=== PATIENT | male | born 1955 | race Caucasian/White ===

== ENCOUNTER 2020-03-16 18:21 | Observation (INO) | payer MEDICARE, MEDICAID ==
[~2020-03-16] VITALS: Ht 175.3 cm; Wt 115.3 kg
[2020-03-16 18:29] VITALS: BP 214/108
[2020-03-16] MEDS ORDERED: TRAMADOL 50 MG50 MG PO (18:33)
[2020-03-16] MEDS ORDERED: NEURONTIN100 MG PO (18:33)
[2020-03-16] MEDS ORDERED: GLIPIZIDE 10 MG10 MG PO (18:34)
[2020-03-16] MEDS ORDERED: LOSARTAN POTAS100 MG PO (18:34)
[2020-03-16] MEDS ORDERED: NOVOLOG100 UNIT/M SUBQ (18:34)
[2020-03-16] MEDS ORDERED: CRESTOR20 MG PO (18:34)
[2020-03-16] MEDS ORDERED: LEVEMIR100 UNIT/1 (18:35)
[2020-03-16 18:46] LABS: ABSOLUTE EOSINOPHILS 0.2 thou/uL (0.0-0.7); ABSOLUTE LYMPHOCYTES 2.4 thou/uL (0.8-5.3); ABSOLUTE MONOCYTES 0.6 thou/uL (0.0-1.2); BASOPHILS 0.5 %; EOSINOPHILS 2.2 %; HEMATOCRIT 33.2 % (42.0-52.0); LYMPHOCYTES 26.1 %; MCHC 36.3 g/dL (28.0-37.0); MCV 88.1 fL (80.0-100.0); MONOCYTES 6.4 %; MPV 7.9 fl. (7.2-11.1); NUCLEATED RBCS 0 /100WBC; PLATELET COUNT* 258 thou/uL (150-400); POLYS 64.8 %; RBC 3.77 mil/uL (4.50-6.00); RDW-CV 13.1 % (10.5-14.5); WBC 9.3 thou/uL (4.0-11.0)
[2020-03-16 18:55] LABS: CREATININE 2.5 mg/dL (0.6-1.3); POTASSIUM 4.4 mmol/L (3.5-5.1)
[2020-03-16 18:59] LABS: ALBUMIN 3.5 g/dL (3.4-5.0); TOTAL BILIRUBIN 0.4 mg/dL (<0.1-1.0); TOTAL PROTEIN 7.4 g/dL (6.4-8.2)
[2020-03-16 21:27] LABS: URINE BILIRUBIN NEGATIVE (Negative); URINE BLOOD 2+ (Negative); URINE CLARITY CLEAR; URINE COLOR YELLOW; URINE GLUCOSE-RANDOM NEGATIVE (Negative); URINE KETONES NEGATIVE (Negative); URINE LEUKOCYTES-REFLEX NEGATIVE (Negative); URINE NITRITE-REFLEX NEGATIVE (Negative); URINE PROTEIN 2+ (Negative); URINE SPECIFIC GRAVITY 1.015 (1.005-1.030); URINE UROBILINOGEN 0.2 E.U./dl (0.2-1.0)
[2020-03-16 21:35] LABS: BACTERIA-REFLEX 1-9 Few /HPF (None Seen); CASTS None Seen /LPF (None Seen); CRYSTALS None Seen /LPF (None Seen); MUCUS 0-3 Light strn/LPF (None Seen); SQUAMOUS 0-3 Few /LPF (0-3); URINE WBC-REFLEX 0-5 Rare /HPF (0-5)
[2020-03-16 22:18] VITALS: BP 189/92
[2020-03-16 22:40] VITALS: BP 175/90
[2020-03-17] VITALS: BP 148/78
[2020-03-17 04:43] VITALS: BP 150/80
--- NOTE | 2020-03-17 05:49 | NUR ---
PT CARE ASSUMED AT 1930. PT SLEPT ON CPAP AT NIGHT. DENIES PAIN. SOB WITH EXERTION. CALL LIGHT WITHIN REACH AND BED IN LOW POSITION. HOURLY ROUNDING DONE FOR PT SAFETY.
--- NOTE | 2020-03-17 05:53 | NUR ---
PT RECIEVED FROM ED IN ROOM 203. PT SLEPT ON CPAP AT NIGHT. DENIES PAIN. SOB WITH EXERTION. CALL LIGHT WITHIN REACH AND BED IN LOW POSITION. HOURLY ROUNDING DONE FOR PT SAFETY.
[2020-03-17 08:00] VITALS: BP 190/89
--- NOTE | 2020-03-17 09:19 | NUR ---
GUERA WAS SEEN THIS MORING AND HE STATED TO ME THAT HE WAS GOING TO LEAVE AMA. HIS REASON WAS THAT HE WASNT GOING TO CHANGE HIS LIFESTYLE, ADHERE TO NEW MEDICATIONS OR DIET AND HE FELT THAT HE WOULD NOT BE NEEDING OUR SEVICES. HIS DAUGHTER ARRIVED AND TRASNPORTED THE PATIENT HOME. AMA AT 09:15.
--- NOTE | 2020-03-17 10:36 | EKG ---
[place] [address] ELECTROCARDIOGRAM REPORT Name: RAZIA JI Room: [address]#: [id number] Admission: 03/16/20 Attend Phys: Renard Mary Discharge: 03/17/20 Date of : 53 Date of Service: 03/16/20 185 Report #: [id number] THIS REPORT FOR: //name// [facility] ED Test Date: 2020-03-16 Test Time: 18:54:24 Pat Name: RAZIA JI Department: Room: 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: : 1955 Requested By: Bismark Martinez Order Number: [id number] MD: Magdiel Macias Measurements Intervals [place] Rate: 95 P: 48 [place]: 130 QRS: 81 QRSD: 96 T: 224 QT: 342 QTc: 430 Interpretive Statements Sinus rhythm Borderline right axis deviation Borderline repolarization abnormality No previous ECG available for comparison Electronically Signed On 03-17-2020 10:36:26 CDT by Magdiel Macias [email or web address] <ELECTRONICALLY SIGNED> By: Magdiel Macias MD, [facility] 03/17/20 1036 1854 53 Magdiel Macias MD, [facility] /EPI
== END 2020-03-17 09:15 | disposition left against medical advice (07) ==
LOC: M.ERS 18:21 → M.2W 19:57 → M.TBA-ER 19:57 → M.2W 19:57
PROVIDERS: Physician Assistant; ADMIT Family Medicine; ATTEND Family Medicine
DX: L02.11 Cutaneous abscess of neck (principal); N17.9 Acute kidney failure, unspecified; I10 Essential (primary) hypertension; E11.9 Type 2 diabetes mellitus without complications; E78.5 Hyperlipidemia, unspecified; I16.0 Hypertensive urgency; Z79.4 Long term (current) use of insulin; Z79.899 Other long term (current) drug therapy; Z20.828 Contact with and (suspected) exposure to other viral communicable diseases; Z23 Encounter for immunization

== ENCOUNTER 2020-06-25 00:27 | Inpatient (IN) | payer MEDICARE, MEDICAID ==
[~2020-06-25] VITALS: Ht 175.3 cm; Wt 118.8 kg
[2020-06-25] VITALS (7 sets, daily range): BP systolic 130–187; BP diastolic 77–97
[~2020-06-25 00:27] MED LIST: CRESTOR20 MG PO; GLIPIZIDE 10 MG10 MG PO; LEVEMIR100 UNIT/1; LOSARTAN POTAS100 MG PO; NEURONTIN100 MG PO; NOVOLOG100 UNIT/M SUBQ; TRAMADOL 50 MG50 MG PO
[2020-06-25 01:03] LABS: ABSOLUTE BASOPHILS 0.1 thou/uL (0.0-0.2); ABSOLUTE EOSINOPHILS 0.2 thou/uL (0.0-0.7); ABSOLUTE LYMPHOCYTES 1.5 thou/uL (0.8-5.3); ABSOLUTE MONOCYTES 0.7 thou/uL (0.0-1.2); ABSOLUTE NEUTROPHILS 13.6 thou/uL (1.6-8.1); BASOPHILS 0.5 %; EOSINOPHILS 1.1 %; HEMATOCRIT 31.6 % (42.0-52.0); LYMPHOCYTES 9.1 %; MCH 30.6 pg (26.0-34.0); MCHC 34.7 g/dL (28.0-37.0); MCV 88.2 fL (80.0-100.0); MONOCYTES 4.5 %; MPV 7.9 fl. (7.2-11.1); NUCLEATED RBCS 0 /100WBC; PLATELET COUNT* 223 thou/uL (150-400); POLYS 84.8 %; RBC 3.58 mil/uL (4.50-6.00); RDW-CV 13.5 % (10.5-14.5); WBC 16.1 thou/uL (4.0-11.0)
[2020-06-25] MEDS ORDERED: ROSUVASTATIN CA20 MG PO (01:10)
[2020-06-25] MEDS ORDERED: NEURONTIN100 MG PO (01:10)
[2020-06-25] MEDS ORDERED: GLIPIZIDE 10 MG10 MG PO (01:10)
[2020-06-25] MEDS ORDERED: NASONEX17 GM NASAL (01:11)
[2020-06-25] MEDS ORDERED: ATROVENT HFA14 GM INH (01:11)
[2020-06-25 01:15] LABS: CALCIUM 8.9 mg/dL (8.5-10.1); CREATININE 3.4 mg/dL (0.6-1.3); POTASSIUM 4.5 mmol/L (3.5-5.1)
[2020-06-25 01:18] LABS: APTT 27.4 Seconds (25.0-31.3); PROTIME 11.1 Seconds (9.20-11.50)
[2020-06-25 01:25] LABS: ALBUMIN 3.5 g/dL (3.4-5.0); MAGNESIUM 2.1 mg/dL (1.8-2.4); TOTAL BILIRUBIN 0.4 mg/dL (<0.1-1.0); TOTAL PROTEIN 7.7 g/dL (6.4-8.2)
[2020-06-25 11:56] LABS: ANION GAP 11 mmol/L (7-16); BUN 42 mg/dL (7-18); CALCIUM 8.8 mg/dL (8.5-10.1); CHLORIDE 104 mmol/L (98-107); CO2 25 mmol/L (21-32); CREATININE 3.1 mg/dL (0.6-1.3); GLUCOSE 93 mg/dL (70-99); POTASSIUM 4.6 mmol/L (3.5-5.1); SODIUM 140 mmol/L (136-145)
[2020-06-25 12:01] LABS: CHOLESTEROL 134 mg/dL (<200); HDL CHOLESTEROL 39 mg/dL (>40); LDL CHOLESTEROL 29 mg/dL (<100); MAGNESIUM 2.2 mg/dL (1.8-2.4); PHOSPHORUS* 3.1 mg/dL (2.5-4.9); TC:HDL 3.4 Ratio (Not establshd); TRIGLYCERIDE 330 mg/dL (<150); VLDL 66 mg/dL (<40)
[2020-06-25 12:03] LABS: SERUM ASSESSMENT Clear
--- NOTE | 2020-06-25 13:15 | EKG ---
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: [place] : 1955 Requested By: Brodie Salas Order Number: [id number] MD: Franklin Yu Measurements Intervals [place] Rate: 115 P: 57 OR: 142 QRS: 78 QRSD: 82 T: 176 QT: 308 QTc: 426 Interpretive Statements Sinus tachycardia Nonspecific repol abnormality, lateral leads Baseline wander in lead(s) V4 Compared to ECG 03/16/2020 18:54:24 Sinus rhythm no longer present Electronically Signed On 06-25-2020 13:14:59 RECONCILIATION MACHINE OPERATOR by Franklin Yu [email or web address] <ELECTRONICALLY SIGNED> By: Franklin Yu MD, FACC 06/25/20 1314 0038 0038 Franklin Yu MD, FAC /EPI
[2020-06-26] VITALS (8 sets, daily range): BP systolic 136–156; BP diastolic 75–96
[2020-06-26 08:03] LABS: ABSOLUTE BASOPHILS 0.1 thou/uL (0.0-0.2); ABSOLUTE EOSINOPHILS 0.1 thou/uL (0.0-0.7); ABSOLUTE LYMPHOCYTES 1.5 thou/uL (0.8-5.3); ABSOLUTE MONOCYTES 0.4 thou/uL (0.0-1.2); ABSOLUTE NEUTROPHILS 8.2 thou/uL (1.6-8.1); BASOPHILS 0.9 %; EOSINOPHILS 0.6 %; HEMOGLOBIN 10.8 gm/dL (14.0-18.0); LYMPHOCYTES 14.3 %; MCH 31.2 pg (26.0-34.0); MCHC 34.9 g/dL (28.0-37.0); MCV 89.4 fL (80.0-100.0); MONOCYTES 3.9 %; MPV 9.5 fl. (7.2-11.1); NUCLEATED RBCS 0 /100WBC; PLATELET COUNT* 284 thou/uL (150-400); POLYS 80.3 %; RBC 3.47 mil/uL (4.50-6.00); RDW-CV 13.4 % (10.5-14.5); WBC 10.2 thou/uL (4.0-11.0)
[2020-06-26 08:37] LABS: ALBUMIN 3.4 g/dL (3.4-5.0); CALCIUM 8.8 mg/dL (8.5-10.1); CREATININE 2.8 mg/dL (0.6-1.3); POTASSIUM 4.9 mmol/L (3.5-5.1); TOTAL BILIRUBIN 0.5 mg/dL (<0.1-1.0); TOTAL PROTEIN 6.7 g/dL (6.4-8.2)
--- NOTE | 2020-06-26 10:48 | CON ---
[address] [address] CONSULTATION Name: RAZIA JI Room: [address] IN M.R.#: [id number] Admission: 06/25/20 Attend Phys: Court Mcfarland Discharge: Date of : 53 Report #: [id number] THIS REPORT FOR: cc: Solitario Laws MD, Anthony MD ~ Liston, Michael J. MD FAC INDICATION: Non-ST elevation myocardial infarction. HISTORY OF PRESENT ILLNESS: The patient is a very pleasant 64-year-old gentleman with no prior history of coronary artery disease. Cardiac risk factors include type 2 insulin-requiring diabetes, dyslipidemia, family history of coronary artery disease. The patient has been having some intermittent shortness of breath and orthopnea for the past several weeks. He has been prescribed an inhaler in the past, which he was using without effect. Yesterday, he had a prolonged episode of shortness of breath associated with chest discomfort radiating from the left chest into the left arm. The patient presented to the Emergency Room with significant respiratory distress. The patient was given aspirin, nitroglycerin, and supplemental oxygen in the Emergency Room with relief of his symptoms. The patient's troponin is elevated consistent with non-ST elevation myocardial infarction. EKG at that time showed some subtle T-wave inversion in the anterolateral leads. There was no ST elevation. The patient was placed on a heparin drip and initiated beta-sarthak therapy. At the time of interview, the patient appears comfortable. He is no longer having discomfort or shortness of breath. He did report some orthopnea-like symptoms overnight. Of note, the patient has a creatinine of 3.5 consistent with significant underlying renal insufficiency. His creatinine in February of this year was 2.4. There appears to possibly be some acute component. PAST MEDICAL HISTORY: 1. Type 2 insulin-requiring diabetes. 2. Hypertension. 3. Hyperlipidemia. 4. Chronic renal insufficiency. 5. Bilateral visual loss. 6. Sinusitis. 7. History of hernia repair as an . FAMILY HISTORY: There was some remote history of coronary artery disease, although the patient could not recall which relatives. SOCIAL HISTORY: The patient is a lifelong nonsmoker. He does drink [place] [address] CONSULTATION Name: RAZIA JI Room: [address]#: [id number] Admission: 06/25/20 Attend Phys: Court Mcfarland Discharge: Date of : 53 Report #: [id number] HOME MEDICATIONS: Gabapentin 100 mg p.o. t.i.d., tramadol 50 mg b.i.d. p.r.n., Crestor 20 mg daily, glipizide 10 mg b.i.d., losartan 100 mg daily, Levemir insulin 70 units b.i.d., ipratropium inhaler 2 puffs q.i.d. p.r.n., Nasonex 2 sprays nasally daily. PHYSICAL EXAMINATION: VITAL SIGNS: Blood pressure 170/92, pulse presently 106 and regular. GENERAL: This is a pleasant gentleman who does not appear to be in any distress. HEENT: Head is normocephalic, atraumatic. NECK: Shows no obvious jugular venous distention. The patient is thick. CHEST: Reveals clear lung foss. I do not appreciate wheezes or rales at this time. CARDIOVASCULAR: Reveals a regular rhythm without gallop or murmur. ABDOMEN: Reveals normal bowel sounds. The abdomen is soft, nontender. EXTREMITIES: Shows trace pedal and ankle edema. SKIN: Warm and dry. LABORATORY DATA: Labs are reviewed. Sodium 134, potassium 4.5, chloride 100, bicarbonate 22, BUN 42, creatinine 3.4, serum glucose 231. LFTs within normal limits. Troponins have been trending up to a peak of 3.94 this morning. NT-proBNP 1466. White blood cell count 16.1, hemoglobin 11.0, platelet count 233,000. Chest x-ray suggests mild pulmonary vascular congestion. IMPRESSION AND RECOMMENDATIONS: 1. Non-ST elevation myocardial infarction. Ultimately, the patient will need angiography and possible intervention. Presently acute renal failure is complicating that plan somewhat. At this point in time, I would like to continue heparin drip and start Aggrastat. I would start a nitroglycerin drip at 10 mcg per kilogram per minute. Continue daily aspirin. Switch from metoprolol to carvedilol for improved blood pressure and heart rate control. We will plan on invasive evaluation once renal function more stable unless the patient has persistent symptoms. 2. Dyslipidemia. Continue Crestor at current dose. Fasting lipid profile has been ordered. 3. Hypertension. Blood pressure moderately elevated. I am starting carvedilol 12.5 mg b.i.d. 4. Diabetes. Continue home regimen. [facility] [address] [place] [address] CONSULTATION Name: RAZIA JI Room: [address] IN M.R.#: [id number] Admission: 06/25/20 Attend Phys: Court Mcfarland Discharge: Date of : 53 Report #: [id number] 5. Acute on chronic heart failure. An echocardiogram will be ordered. I suspect this is primarily diastolic in nature. <ELECTRONICALLY SIGNED> By: Franklin Yu MD, FACC 06/26/20 1048 1155 1210Franklin Yu MD, FACC /nt
--- NOTE | 2020-06-26 13:24 | 2DMMODE ---
[place] [address] 2 D/M-MODE ECHOCARDIOGRAM Name: RAZIA JI Room: [address] IN [facility]#: [id number] Admission: 06/25/20 Attend Phys: Bernadette Chung Discharge: Date of : 53 Date of Service: 06/26/20 1324 Report #: [id number] THIS REPORT FOR: cc: Solitario Laws MD, Anthony MD Liston, Michael J. MD [facility] ~ APPROVED REPORT Study performed: 06/26/2020 09:44:39 EXAM: Comprehensive 2D, Doppler, and color-flow Echocardiogram Patient Location: In-Patient Room #: [facility] Status: routine BSA: 2.33 HR: 103 bpm BP: 153/89 mmHg Rhythm: NSR Other Information Study Quality: Good Indications Non STEMI Dyspnea Chest Pain 2D Dimensions IVSd: 10.45 (7-11mm) LVOT Diam: 19.99 (18-24mm) LVDd: 50.85 mm PWd: 9.73 (7-11mm) Ascending Ao: 31.66 (22-36mm) LVDs: 29.74 (25-40mm) Aortic Root: 34.65 mm Volumes Left Atrial Volume (Systole) LA ESV Index: 25.40 mL/m2 Aortic Valve AoV Peak Florentin.: 2.15 m/s AO Peak Gr.: 18.40 mmHg LVOT Max P.74 mmHg AO Mean Gr.: 10.40 mmHg LVOT Mean P.02 mmHg LVOT Max V: 1.39 m/s AO V2 VTI: 36.19 cm LVOT Mean V: 0.93 m/[place] [address] 2 D/M-MODE ECHOCARDIOGRAM Name: RAZIA JI Room: [address] IN [facility]#: [id number] Admission: 06/25/20 Attend Phys: Bernadette Chung Discharge: Date of : 53 Date of Service: 06/26/20 1324 Report #: [id number] LISA (VTI): 2.41 cm2 LVOT V1 VTI: 27.82 cm Mitral Valve E/A Ratio: 1.21 MV Decel. Time: 171.97 ms MV E Max Florentin.: 1.40 m/s MV PHT: 49.87 ms MVA (PHT): 4.41 cm2 TDI E/Lateral E': 15.56 E/Medial E': 15.56 Medial E' Florentin.: 0.09 m/s Lateral E' Florentin.: 0.09 m/s Pulmonary Valve PV Peak Florentin.: 1.37 m/s PV Peak Gr.: 7.46 mmHg Left Ventricle The left ventricle is normal size. There is normal LV segmental wall motion. There is normal left ventricular wall thickness. Left ventricular systolic function is normal. LVEF is 60-65%. Transmitral Doppler flow pattern suggests impaired LV relaxation. Right Ventricle The right ventricle is normal size. The right ventricular systolic function is normal. Atria Left atrium is mildly dilated. The right atrium size is normal. Aortic Valve Mild aortic valve sclerosis. No aortic regurgitation is present. There is no aortic valvular stenosis. Mitral Valve The mitral valve is normal in structure. Trace mitral regurgitation. No evidence of mitral valve stenosis. Tricuspid Valve The tricuspid valve is normal in structure. Trace tricuspid regurgitation. Unable to assess PA pressure. Pulmonic Valve The pulmonary valve is normal in structure. There is no pulmonic [place] [address] 2 D/M-MODE ECHOCARDIOGRAM Name: RAZIA JI Room: [address]#: [id number] Admission: 06/25/20 Attend Phys: Bernadette Chung Discharge: Date of : 53 Date of Service: 06/26/20 1324 Report #: [id number] Great Vessels The aortic root is normal in size. IVC is normal in size and collapses >50% with inspiration. Pericardium There is no pericardial effusion. <Conclusion> The left ventricle is normal size. There is normal left ventricular wall thickness. Left ventricular systolic function is normal. LVEF is 60-65%. Transmitral Doppler flow pattern suggests impaired LV relaxation. Left atrium is mildly dilated. Mild aortic valve sclerosis. Trace mitral regurgitation. Trace tricuspid regurgitation. IVC is normal in size and collapses >50% with inspiration. <ELECTRONICALLY SIGNED> By: Franklin Yu MD, FACC 06/26/20 1324 1324 1324 Franklin Yu MD, FACC /INF
--- NOTE | 2020-06-26 15:09 | EKG ---
[place] [address] ELECTROCARDIOGRAM REPORT Name: RAZIA JI Room: [address] ADM IN M.R.#: [id number] Admission: 06/25/20 Attend Phys: Bernadette Chung Discharge: Date of : 53 Date of Service: 06/25/20 0951 Report #: [id number] THIS REPORT FOR: //name// [facility] Test Date: 2020-06-25 Test Time: 09:51:24 Pat Name: RAZIA JI Department: Room: [address] Gender: M Color Control Supervisor: CHITO : 1955 Requested By: Bernadette Chung Order Number: [id number] Sam MD: Magdiel Macias Measurements Intervals [place] Rate: 114 P: 43 MT: 152 QRS: 76 QRSD: 90 T: 208 QT: 323 QTc: 445 Interpretive Statements Sinus tachycardia Borderline repolarization abnormality Compared to ECG 06/25/2020 00:38:12 No significant changes Electronically Signed On 06-26-2020 15:08:56 EDGE FINISHER by Magdiel Macias [email or web address] <ELECTRONICALLY SIGNED> By: Magdiel Macias MD, [facility] 06/26/20 1508 0951 0951 Magdiel Macias MD, [facility] /EPI
[2020-06-27] VITALS (7 sets, daily range): BP systolic 116–162; BP diastolic 69–91
[2020-06-27 02:24] LABS: ABSOLUTE BASOPHILS 0.1 thou/uL (0.0-0.2); ABSOLUTE EOSINOPHILS 0.2 thou/uL (0.0-0.7); ABSOLUTE LYMPHOCYTES 1.5 thou/uL (0.8-5.3); ABSOLUTE MONOCYTES 0.5 thou/uL (0.0-1.2); ABSOLUTE NEUTROPHILS 6.9 thou/uL (1.6-8.1); BASOPHILS 0.9 %; EOSINOPHILS 1.8 %; HEMATOCRIT 26.7 % (42.0-52.0); HEMOGLOBIN 9.2 gm/dL (14.0-18.0); LYMPHOCYTES 16.9 %; MCH 30.5 pg (26.0-34.0); MCHC 34.3 g/dL (28.0-37.0); MPV 8.4 fl. (7.2-11.1); NUCLEATED RBCS 0 /100WBC; PLATELET COUNT* 255 thou/uL (150-400); POLYS 75.4 %; RDW-CV 13.4 % (10.5-14.5); WBC 9.1 thou/uL (4.0-11.0)
[2020-06-27 02:35] LABS: CALCIUM 8.6 mg/dL (8.5-10.1); CREATININE 2.8 mg/dL (0.6-1.3); POTASSIUM 4.5 mmol/L (3.5-5.1); TOTAL BILIRUBIN 0.4 mg/dL (<0.1-1.0); TOTAL PROTEIN 6.7 g/dL (6.4-8.2)
--- NOTE | 2020-06-27 17:05 | EKG ---
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: : 1955 Requested By: Franklin Yu Order Number: [id number] Reading MD: Franklin Yu Measurements Intervals [place] Rate: 96 P: 62 OR: 140 QRS: 73 QRSD: 90 T: 171 QT: 344 QTc: 435 Interpretive Statements Sinus rhythm Nonspecific T abnormalities, lateral leads Compared to ECG 06/25/2020 09:51:24 T-wave abnormality now present Sinus tachycardia no longer present Electronically Signed On 06-27-2020 17:05:08 INTERNAL MEDICINE NURSE by Franklin Yu [email or web address] <ELECTRONICALLY SIGNED> By: Franklin Yu MD, FACC 06/27/20 1705 1339 1339 Franklin Yu MD, FAC /EPI
[2020-06-28 04:23] LABS: ALBUMIN 3.3 g/dL (3.4-5.0); CALCIUM 9.2 mg/dL (8.5-10.1); CREATININE 2.6 mg/dL (0.6-1.3); POTASSIUM 3.9 mmol/L (3.5-5.1); TOTAL BILIRUBIN 0.4 mg/dL (<0.1-1.0); TOTAL PROTEIN 7.3 g/dL (6.4-8.2)
[2020-06-28 04:38] VITALS: BP 148/90
[2020-06-28 06:15] LABS: ABSOLUTE BASOPHILS 0.1 thou/uL (0.0-0.2); ABSOLUTE EOSINOPHILS 0.1 thou/uL (0.0-0.7); ABSOLUTE LYMPHOCYTES 1.8 thou/uL (0.8-5.3); ABSOLUTE MONOCYTES 0.6 thou/uL (0.0-1.2); ABSOLUTE NEUTROPHILS 7.3 thou/uL (1.6-8.1); BASOPHILS 0.7 %; EOSINOPHILS 1.4 %; HEMATOCRIT 29.1 % (42.0-52.0); HEMOGLOBIN 10.1 gm/dL (14.0-18.0); LYMPHOCYTES 17.9 %; MCH 31.1 pg (26.0-34.0); MCHC 34.8 g/dL (28.0-37.0); MCV 89.3 fL (80.0-100.0); MONOCYTES 6.2 %; MPV 8.2 fl. (7.2-11.1); NUCLEATED RBCS 0 /100WBC; PLATELET COUNT* 288 thou/uL (150-400); POLYS 73.8 %; RBC 3.26 mil/uL (4.50-6.00); RDW-CV 13.3 % (10.5-14.5); WBC 9.9 thou/uL (4.0-11.0)
[2020-06-28 07:50] VITALS: BP 171/71
[2020-06-28] MEDS ORDERED: EFFIENT10 MG PO (08:42)
[2020-06-28] MEDS ORDERED: NITROGLYCERIN0.4 MG SUBLING (08:42)
[2020-06-28] MEDS ORDERED: CARVEDILOL12.5 MG PO (08:42)
[2020-06-28] MEDS ORDERED: ASPIR 8181 MG PO (08:42)
[2020-06-28] MEDS ORDERED: CEFDINIR300 MG PO (09:58)
--- NOTE | 2020-06-28 09:58 | EKG ---
[place] [address] ELECTROCARDIOGRAM REPORT Name: RAZIA JI Room: [address] ADM IN M.R.#: [id number] Admission: 06/25/20 Attend Phys: Bernadette Chung Discharge: Date of : 53 Date of Service: 06/28/20 0515 Report #: [id number] THIS REPORT FOR: //name// [facility] Test Date: 2020-06-28 Test Time: 05:15:14 Pat Name: RAZIA JI Department: Room: [address] Gender: M Pain Management Nurse Practitioner: TR : 1955 Requested By: Franklin Yu Order Number: [id number] Sam MD: Magdiel Macias Measurements Intervals [place] Rate: 92 P: 82 FL: 122 QRS: 79 QRSD: 109 T: 179 QT: 393 QTc: 487 Interpretive Statements Sinus rhythm Diffuse nonspecific ST-T abnormalities Compared to ECG 06/27/2020 13:39:[address]-T abnormalities persist Electronically Signed On 06-28-2020 9:58:31 OCULAR CARE TECHNICIAN by Magdiel Macias [email or web address] <ELECTRONICALLY SIGNED> By: Magdiel Macias MD, [facility] 06/28/20 0958 0515 Magdiel Macias MD, [facility] /EPI
[2020-06-28 11:13] VITALS: BP 156/83
[2020-06-28 11:28] VITALS: BP 156/83
[2020-06-28 13:09] VITALS: BP 156/83
--- NOTE | 2020-06-29 16:59 | CARD ---
[address] [address] CARDIAC CATH REPORT Name: RAZIA JI Room: [address] IN [facility]#: [id number] Admission: 06/25/20 Attend Phys: Court Mcfarland Discharge: 06/28/20 Date of : 53 Report #: [id number] THIS REPORT FOR: cc: Solitario Laws MD, Anthony MD ~ Franklin Yu MD [facility] ADDENDUM APPROVED REPORT Study performed: 06/27/2020 09:20:30 Patient Details Patient Status: In-Patient Room #: The patient is a 64 year-old male Event Personnel Franklin Yu Oxyacetylene Torch Operator , Magdiel Macias Election Supervisor, Michelle Lunsford RN Electronics Installer, Jarett Jain LOADING UNIT OPERATOR SEATING Scrub, Meg Modi RN Monitor Procedures Performed Selective coronary arteriography and PCI to the 100% chronic total occlusion of the posterior descending branch of the dominant right coronary arteryArt Access - R femoral artery* Left Heart Cath w/or w/o Coronaries C NATAN Revasc Chronic Ttl Occl Single PDA CTOREVSING Hemostasis w/ Angioseal Indication Non-STEMI Risk Factors Hypercholesterolemia, Hypertension Admission/Lab Medications/Medications given during procedure Effient PO 60 mg, Nitroglycerin IC 200 mcg, Angiomax Drip IV 23.76 ml per hr, Angiomax IV 18 ml Procedure Narrative The patient was brought electively to the Cardiac Catheterization Laboratory and was prepped and draped in a sterile manner. The right femoral was infiltrated with 2% Lidocaine subcutaneous anesthesia. A [place] 6 FR sheath was inserted into the right femoral artery. Coronary angiography was performed using coronary diagnostic catheters. The left coronary system was accessed and visualized with a Diagnostic JL4 6FR catheter. The left [place] [address] CARDIAC CATH REPORT Name: RAZIA JI Room: [address]#: [id number] Admission: 06/25/20 Attend Phys: Court Mcfarland Discharge: 06/28/20 Date of : 53 Report #: [id number] visualized with a Diagnostic PIGTAIL catheter. Pre-demployment femoral angiogram was performed . Closure device was deployed with a 6 Fr Angioseal. The patient tolerated the procedure well and there were no complications associated with the procedure. There was no hematoma. Intraoperative Conscious Sedation Sedation start time: 10:06 Case end Time: 11:33 NO SEDATION GIVEN Fluoro Time: 36.3 minutes Dose: DAP 211393 cGycm2 4941 mGy Contrast Type and Amount: Visipaque 230 ml Coronary Angiography The patient's coronary anatomy is right dominant. Diagnostic Cath Left Main 0% narrowing LAD 80% tubular proximalmid vessel narrowing with 90% ostial first diagonal stenosis Circumflex 40% narrowing the proximal portion of the first marginal branch Right Coronary Large dominant vessel with 100% chronic total occlusion of the posterior descending branch with recanalization and SKY II flow to the distal vessel Left Ventriculography Left Ventriculography was not performed. Hemodynamics The aortic pressure is 172/84 mmHg with a mean of 120 mmHg. The left ventricular pressure is 167/3 mmHg with a mean of mmHg. The left ventricular end diastolic pressure is 25 mmHg. PCI Technique Lesion Anticoagulation was achieved with Angiomax. Percutaneous coronary intervention was performed on the right posterior descending artery. The lesion stenosis prior to intervention was 100% with SKY 2 flow. A JR4 Guide Catheter was used to engage the ostium. A 014 Fielder XT Interventional Guidewire was used to cross the lesion. BALLOON DILATION A Balloon catheter Mini Trek RX 2.0 X 12 was inserted and inflated up to 10.00atm for 14seconds. Additional Inflation: 18.00[place]m [place] [address] CARDIAC CATH REPORT Name: RAZIA JI Room: [address]#: [id number] Admission: 06/25/20 Attend Phys: Court Mcfarland Discharge: 06/28/20 Date of : 53 Report #: [id number] 14seconds. Additional Inflation: 18.00atm for 13seconds. STENT DEPLOYMENT A drug-eluting stent Thicket RX Stent 2.0X22mm was inserted and inflated up to 16atm for 15seconds. Additional Inflation: 16.00atm for 14seconds. 2.25 x 18 Jorge Rx stent was deployed just proximal to the previous stent to provide satisfactory lesion coverage Final angiography reveals 10 % stenosis with SKY 3 flow. COMMENTS This chronic total occlusion of the posterior descending branch of the right coronary artery was crossed with a Fielder XT wire utilizing fine cross support catheter. I then traversed the chronic total occlusion with the fine cross catheter and contrast infusion demonstrated intraluminal location. The long Fielder XT was replaced with a soft-tipped wire, a long BMW and the remainder the case was done over this soft tip long wire. BALLOON DILATION A Balloon catheter was inserted and inflated up to 16.00atm for 12seconds. Additional Inflation: 21.00atm for 10seconds. STENT DEPLOYMENT A drug-eluting stent Jorge RX Stent 2.01N99he was inserted and inflated up to 12.00atm for 14seconds. Additional Inflation: 18.00atm for 13seconds. Additional Inflation: 18.00atm for 14seconds. Conclusion 1. Severe multivessel coronary artery disease characterized by the following: A 80% tubular proximalmid LAD stenosis with 90% ostial first diagonal stenosis B 40% narrowing of the proximal portion of the first marginal branch of the nondominant circumflex C 100% chronic total occlusion of the posterior descending branch of the dominant right coronary artery 2. Moderate systemic systolic hypertension with moderately severe elevation of left ventricular end-diastolic [place] [address] CARDIAC CATH REPORT Name: RAZIA JI Room: [address] IN [facility].#: [id number] Admission: 06/25/20 Attend Phys: Court Mcfarland Discharge: 06/28/20 Date of : 53 Report #: [id number] 3. Successful PCI at the site of 100% chronic total occlusion of the posterior descending branch of the right coronary artery, as noted in the technique section, with 10% residual narrowing and SKY-3 flow to the distal vessel. Recommendations Cardiac Risk Reduction Program Aggressive Medical Therapy Medications Administered Aspirin (any) Prasugrel Diagnostic Cath Approved by: Franklin Yu MD Date/Time: 06/27/2020 12:37:12 <ELECTRONICALLY SIGNED> By: Franklin Yu MD, FACC 06/29/20 1659 58 1659[email or web address] Yu MD, FACC /INF
== END 2020-06-28 14:00 | disposition home or self-care (01) | DRG 246 ==
LOC: M.ERS 00:27 → M.TBA-ER 02:19 → M.2W 02:19
PROVIDERS: Emergency Medicine Emergency Medical Services; Internal Medicine; Internal Medicine Cardiovascular Disease; ADMIT Internal Medicine; ATTEND Internal Medicine
PROC: 4A023N7 Measurement of Cardiac Sampling and Pressure, Left Heart, Percutaneous Approach (ICD-10-PCS; principal; 2020-06-27)
PROC: 027035Z Dilation of Coronary Artery, One Artery with Two Drug-eluting Intraluminal Devices, Percutaneous Approach (ICD-10-PCS; principal; 2020-06-27)
PROC: B211YZZ Fluoroscopy of Multiple Coronary Arteries using Other Contrast (ICD-10-PCS; principal; 2020-06-27)
DX: I13.0 Hypertensive heart and chronic kidney disease with heart failure and stage 1 through stage 4 chronic kidney disease, or unspecified chronic kidney disease (principal); J15.6 Pneumonia due to other Gram-negative bacteria; I21.4 Non-ST elevation (NSTEMI) myocardial infarction; I50.33 Acute on chronic diastolic (congestive) heart failure; N17.9 Acute kidney failure, unspecified; E78.5 Hyperlipidemia, unspecified; E11.22 Type 2 diabetes mellitus with diabetic chronic kidney disease; N18.9 Chronic kidney disease, unspecified; I25.10 Atherosclerotic heart disease of native coronary artery without angina pectoris; Z20.828 Contact with and (suspected) exposure to other viral communicable diseases; Z79.899 Other long term (current) drug therapy; Z79.4 Long term (current) use of insulin